=== PATIENT | female | born 1960 | race Caucasian/White ===

== ENCOUNTER 2020-01-08 18:54 | Observation (INO) ==
[2020-01-08 20:26] LABS: Basophils # 0.1 K/mcL (0.0-0.2); Basophils % 1.2 %; Eosinophils # 0.6 K/mcL (0.0-0.6); Eosinophils % 9.6 %; Hematocrit 24.9 % (35.3-44.9); Immature Granulocytes % 0.3 % (0-4); Immature Platelets 7.3 % (1.1-6.1); Lymphocytes # 2.1 K/mcL (0.6-4.6); Lymphocytes % 32.1 %; Mean Corpuscular HGB Conc 23.7 g/dL (31.6-35.5); Mean Corpuscular Hemoglobin 14.1 pg (28.0-33.3); Mean Corpuscular Volume 59.6 fL (83.0-100.0); Monocytes # 0.8 K/mcL (0.0-1.3); Monocytes % 11.6 %; Platelet Count 338 K/mcL (140-400); Red Blood Count 4.18 M/mcL (3.82-4.97); Red Cell Distribution Width 21.2 % (11.5-14.5); Segmented Neutrophils % 45.2 %; White Blood Count 6.6 K/mcL (4.3-11.1)
[2020-01-08 20:46] LABS: Alanine Aminotransferase 10 Units/L (7-52); Albumin/Globulin Ratio 1.7 (1.1-2.2); Alkaline Phosphatase 89 Units/L (34-104); Aspartate Amino Transferase 16 Units/L (13-39); BUN/Creatinine Ratio 14 (6-26); Bilirubin,Total 0.8 mg/dL (0.3-1.0); Blood Urea Nitrogen 7 mg/dL (6-20); Calcium 9.5 mg/dL (8.6-10.3); Carbon Dioxide 28 mEq/L (23-29); Chloride 101 mEq/L (98-107); Glucose 105 mg/dL (70-105); Osmolality,Calculated 280 (280-300); Potassium 3.7 mEq/L (3.5-5.1); Sodium 136 mEq/L (136-145); eGFR For African Americans > 60 (> 60); eGFR For Non-African Americans > 60 (> 60)
[2020-01-08 20:53] LABS: Hemoglobin 5.9 g/dL (11.5-15.4)
[2020-01-08 20:54] LABS: Hypochromasia Present (Not Present); Microcytosis Present (Not Present)
[2020-01-08] MEDS ORDERED: 0.9 % Sodium Chloride 1,000 ML IVC SCH (23:30)
[2020-01-08] MEDS ORDERED: Acetaminophen 325 MG TABLET PO PRN (23:30)
[2020-01-08] MEDS ORDERED: Naloxone 0.4 MG/ML INJ IVP PRN (23:30)
[2020-01-08] MEDS ORDERED: *HR* Promethazine 25 MG/ML VIAL IVP PRN (23:30)
[2020-01-09 07:13] LABS: Immature Granulocytes % 0.2 % (0-4); Mean Corpuscular HGB Conc 24.7 g/dL (31.6-35.5); Red Cell Distribution Width 25.1 % (11.5-14.5)
[2020-01-09 07:15] LABS: Basophils # 0.1 K/mcL (0.0-0.2); Basophils % 1.2 %; Eosinophils # 0.7 K/mcL (0.0-0.6); Eosinophils % 12.3 %; Hematocrit 25.9 % (35.3-44.9); Hemoglobin 6.4 g/dL (11.5-15.4); Immature Platelets 9.9 % (1.1-6.1); Lymphocytes # 2.1 K/mcL (0.6-4.6); Lymphocytes % 36.3 %; Mean Corpuscular Hemoglobin 15.8 pg (28.0-33.3); Monocytes # 0.6 K/mcL (0.0-1.3); Monocytes % 10.1 %; Neutrophils # 2.3 K/mcL (1.6-8.9); Platelet Count 246 K/mcL (140-400); Red Blood Count 4.05 M/mcL (3.82-4.97); Segmented Neutrophils % 39.9 %; White Blood Count 5.7 K/mcL (4.3-11.1)
[2020-01-09 07:20] LABS: INR 1.1
[2020-01-09 07:33] LABS: BUN/Creatinine Ratio 17 (6-26); Blood Urea Nitrogen 8 mg/dL (6-20); Calcium 9.2 mg/dL (8.6-10.3); Carbon Dioxide 27 mEq/L (23-29); Chloride 104 mEq/L (98-107); Glucose 112 mg/dL (70-105); Osmolality,Calculated 285 (280-300); Phosphorous 4.7 mg/dL (2.7-4.5); Sodium 138 mEq/L (136-145); eGFR For African Americans > 60 (> 60); eGFR For Non-African Americans > 60 (> 60)
[2020-01-09 07:35] LABS: % Iron Saturation 3 % (15-50); Iron 17 mcg/dL (50-170); Transferrin 364 mg/dL (203-362)
[2020-01-09 07:55] LABS: Ferritin < 8 ng/mL (10-120)
[2020-01-09 07:58] LABS: Folate 7.6 ng/mL (3.0-16.0)
[2020-01-09 08:06] LABS: Anisocytosis 2+ (Not Present); Hypochromasia Present (Not Present); Microcytosis Present (Not Present); Platelet Estimate Normal (Normal)
[2020-01-09 14:32] LABS: Hematocrit 32.2 % (35.3-44.9); Hemoglobin 8.6 g/dL (11.5-15.4)
[2020-01-09 14:53] VITALS: BP 128/68
== END 2020-01-09 16:14 | disposition home or self-care (01) ==
LOC: EMEROOARM 18:54 → 3BNU 18:54 → SUATTDRO 22:45 → 3BNU 23:15
PROVIDERS: ADMIT Student in an Organized Health Care Education/Training Program; ATTEND Nurse Practitioner Adult Health